=== PATIENT | male | born 2000 | race Caucasian/White ===

== ENCOUNTER 2018-11-26 15:06 | Emergency (ER) | payer SELFPAY ==
[2018-11-26 16:06] LABS: Absolute Lymphocytes (CBC) 1.4 K/uL (0.7-4.9); Absolute Monocytes 0.3 K/uL (0.1-1.3); Basophils % 0.4 % (0-1.3); Eosinophils % 0.3 % (0-4.4); Hematocrit 48.1 % (39.6-49.0); Lymphocytes % 23.8 % (15.3-44.8); MPV 7.3 fL (7.6-11.3); Monocytes % 5.8 % (3.3-12.3); RBC Red Blood Cell Count 5.55 M/uL (4.33-5.43)
[2018-11-26] MEDS ORDERED: NA CHLORIDE 0.9% 1,000 ML ONE (16:12)
[2018-11-26] MEDS ORDERED: MECLIZINE HCL 12.5 MG TAB ONE ×2 (16:24→16:28)
[2018-11-26] MEDS ORDERED: ONDANSETRON 4 MG (ODT) TAB ONE (16:24)
[2018-11-26 16:31] LABS: BUN Blood Urea Nitrogen 12 mg/dL (7-18); Bicarbonate 27 mmol/L (21-32); Glucose Level 155 mg/dL (74-106); Magnesium 2.6 mg/dL (1.8-2.4); Potassium 3.6 mmol/L (3.5-5.1); Sodium Level 140 mmol/L (136-145); T3 Free 3.16 pg/mL (2.18-3.98)
--- NOTE | 2018-11-26 16:31 | EKG ---
Test Date: 2018-11-26 Test Time: 15:41:31 Relay Dispatcher: JAZ MEASUREMENT RESULTS: Intervals: Rate: 68 VT: 146 QRSD: 104 QT: 382 QTc: 406 Mccormick: P: 62 VT: 146 QRS: 63 T: 54 INTERPRETIVE STATEMENTS: Normal sinus rhythm Normal ECG No previous ECG available for comparison Electronically Signed On 11-26-18 16:30:25 CDT by João Rajan
--- NOTE | 2018-11-26 16:55 | EDPHYS ---
Physician Documentation [facility] Name: Faizan Montejo Age: 18 yrs Sex: Male : 2000 Arrival Date: 11/26/2018 Time: 15:11 Bed 27 Private MD: ED Physician Fredi Holman HPI: 11/26 15:40 This 18 yrs old Male presents to ER via Ambulatory with complaints of cp Dizziness, Fatigue. 15:40 The patient presents with dizziness, lightheadedness. Onset: The symptoms/episode cp began/occurred 1 week(s) ago. Context: occurred while the patient was eating at restaurant today. just prior to the episode the patient experienced no apparent symptoms. 15:40 Modifying factors: the symptoms are aggravated by standing up. Associated signs and cp symptoms: Pertinent negatives: blurred vision, chest pain, focal weakness, headache, syncope, vomiting. Severity of symptoms: in the emergency department the symptoms are unchanged. Patient's baseline: Neuro: alert and fully oriented, Motor: no deficits, Ambulation: walks without assistance, Speech: normal. Historical: - Allergies: 15:19 No Known Allergies; sg - Home Meds: 15:19 None [Active]; sg - PMHx: 15:19 None; sg - PSHx: 15:19 None; sg - Immunization history:: Adult Immunizations. - Social history:: Smoking status: Patient/guardian denies using tobacco. - Ebola Screening: : Patient negative for fever greater than or equal to 101.5 degrees Fahrenheit, and additional compatible Ebola Virus Disease symptoms Patient denies exposure to infectious person Patient denies travel to an Ebola-affected area in the 21 days before illness onset No symptoms or risks identified at this time. ROS: 16:45 Constitutional: Positive for fatigue, Negative for body aches, chills, fever, poor PO cp intake. 16:45 Eyes: Negative for injury, pain, redness, and discharge. cp 16:45 ENT: Negative for drainage from ear(s), ear pain, sore throat, difficulty swallowing, difficulty handling secretions. 16:45 Neck: Negative for pain with movement, pain at rest, stiffness, tenderness. 16:45 Cardiovascular: Negative for chest pain, edema, palpitations. 16:45 Respiratory: Negative for cough, shortness of breath, wheezing. 16:45 Abdomen/GI: Negative for abdominal pain, nausea, vomiting, and diarrhea, constipation, black/tarry stool, rectal bleeding. 16:45 : Negative for urinary symptoms. 16:45 Skin: Negative for cellulitis, rash. 16:45 Neuro: Positive for dizziness, Negative for altered mental status, headache, syncope, weakness. 16:45 All other systems are negative. Exam: 15:45 ECG was reviewed by the Attending Physician. cp 16:48 Constitutional: The patient appears in no acute distress, alert, awake, cp non-diaphoretic, non-toxic, well developed, well nourished. 16:48 Head/Face: Normocephalic, atraumatic. cp 16:48 Eyes: Periorbital structures: appear normal, Pupils: equal, round, and reactive to light and accomodation, Extraocular movements: intact throughout, Conjunctiva: normal, no exudate, no injection, Lids and lashes: appear normal, bilaterally. 16:48 ENT: External ear(s): are unremarkable, Ear canal(s): are normal, clear, TM's: dullness, bilaterally, Nose: is normal, Mouth: Lips: moist, Oral mucosa: pink and intact, moist, Posterior pharynx: is normal, airway is patent, no erythema, no exudate. 16:48 Neck: ROM/movement: is normal, is supple, without pain, no range of motions limitations, no nuchal rigidity, Lymph nodes: no appreciated lymphadenopathy. 16:48 Chest/axilla: Inspection: normal, Palpation: is normal, no crepitus, no tenderness. 16:48 Cardiovascular: Rate: normal, Rhythm: regular, Heart sounds: murmur, not appreciated, Edema: is not appreciated, JVD: is not appreciated. 16:48 Respiratory: the patient does not display signs of respiratory distress, Respirations: normal, no use of accessory muscles, no retractions, no splinting, no tachypnea, labored breathing, is not present, Breath sounds: are clear throughout, no decreased breath sounds, no stridor, no wheezing. 16:48 Abdomen/GI: Inspection: abdomen appears normal, Palpation: abdomen is soft and non-tender, in all quadrants. 16:48 Skin: no rash present. 16:48 Neuro: Orientation: to person, place \\T\\ time. Mentation: is normal, Cerebellar function: is grossly normal, Motor: moves all fours, strength is normal, Sensation: is normal. Vital Signs: 15:18 BP 132 / 81; Pulse 93; Resp 16; Temp 97.2; Pulse Ox 100% ; Weight 59.87 kg; Height 5 sg ft. 9 in. (175.26 cm); Pain 0/10; 15:20 BP 124 / 74 Supine (auto/reg); Pulse 77; Resp 18; Pulse Ox 97% on R/A; jp3 15:22 BP 123 / 86 Sitting (auto/reg); Pulse 109; Pulse Ox 98% on R/A; jp3 15:24 BP 122 / 77 Standing (auto/reg); Pulse 122; Pulse Ox 97% on R/A; jp3 16:15 BP 128 / 84; Pulse 77; Resp 18 S; Pulse Ox 99% on R/A; ca1 17:00 BP 124 / 82; Pulse 75; Resp 18 S; Pulse Ox 100% on R/A; ca1 15:18 Body Mass Index 19.49 (59.87 kg, 175.26 cm) sg 15:20 pt reported "eyes feel heavy; slight lightheadiness; 'mush mouth' " jp3 15:22 pt reported "feel the same as laying down; dry mouth" jp3 15:24 pt reported "heavy eyes and lightheadiness worse than sitting and laying; slight upset jp3 stomach when standing" MDM: 15:14 Patient medically screened. cp 16:00 Differential diagnosis: cardiac arrhythmia, generalized weakness, hypovolemia, cp idiopathic dizziness, vertigo. 16:54 Data reviewed: vital signs, nurses notes, lab test result(s), EKG, and as a result, I cp will discharge patient. 16:54 Test interpretation: by ED physician or midlevel provider: ECG. cp 16:55 Counseling: I had a detailed discussion with the patient and/or guardian regarding: the cp historical points, exam findings, and any diagnostic results supporting the discharge/admit diagnosis, lab results, to return to the emergency department if symptoms worsen or persist or if there are any questions or concerns that arise at home. 16:55 Response to treatment: the patient's symptoms have markedly improved after treatment, cp and as a result, I will discharge patient. ED course: VSS. Patient reports symptoms improved after IV fluids. Will discharge to home for continued monitoring. 11/26 15:40 Order name: CBC with Diff; Complete Time: 16:30 cp 11/26 16:30 Interpretation: Normal except: RBC 5.55; MPV 7.3. cp 11/26 15:40 Order name: BMP; Complete Time: 16:45 cp 11/26 16:45 Interpretation: Normal except: GLUC 155. cp 11/26 15:40 Order name: Cannon Screen Profile; Complete Time: 16:30 cp 11/26 15:40 Order name: Magnesium; Complete Time: 16:45 cp 11/26 16:45 Interpretation: MG 2.6; Reviewed. cp 11/26 15:40 Order name: TSH; Complete Time: 16:45 cp 11/26 15:40 Order name: T3 Free; Complete Time: 16:45 cp 11/26 15:14 Order name: Orthostatics; Complete Time: 15:32 cp 11/26 15:33 Order name: EKG; Complete Time: 15:34 cp 11/26 16:00 Order name: Glucose, Ancillary Testing; Complete Time: 16:30 EDMS 11/26 16:30 Interpretation: Abnormal: GLUC,ANCIL 158. cp 11/26 15:34 Order name: EKG - Nurse/Tech; Complete Time: 15:44 mg2 11/26 15:40 Order name: Accucheck Blood Glucose; Complete Time: 16:03 cp EC:45 Rate is 68 beats/min. Rhythm is regular. IN interval is normal. QRS interval is cp prolonged at 104 msec. QT interval is normal. Interpreted by me. Reviewed by me. Administered Medications: 15:50 Drug: NS 0.9% 1000 ml Route: IV; Rate: 1 bolus; Site: right antecubital; ca1 16:50 Follow up: Response: No adverse reaction; IV Status: Completed infusion ca1 16:14 Drug: Zofran 4 mg Route: PO; ca1 17:00 Follow up: Response: No adverse reaction; Nausea is decreased ca1 16:20 Drug: Meclizine 25 mg Route: PO; ca1 17:00 Follow up: Response: No adverse reaction; Nausea is decreased ca1 Disposition: 19 16:55 Discharged to Home. Impression: Dizziness and giddiness, Other fatigue. - Condition is Stable. - Discharge Instructions: Dizziness, Fatigue. - Prescriptions for Meclizine 25 mg Oral Tablet - take 1 tablet by ORAL route every 8 hours As needed; 30 tablet. - Medication Reconciliation Form, Thank You Letter, Antibiotic Education, Prescription Opioid Use, Work release form form. - Follow up: Private Physician; When: 2 - 3 days; Reason: symptoms continue. - Problem is new. - Symptoms have improved. Addendum: 11/29/2018 00:14 Co-signature as Attending Physician, Fredi Holman MD. g s Signatures: Dispatcher [employer] EDSanjiv Sykes RN RN sg Jose Luis Ayoub, BRIANDA PA cp Fredi Holman MD MD gs Bran Elizondo, RN RN mg2 Ludmila Gomez RN RN ca1 Corrections: (The following items were deleted from the chart) 11/26 15:34 15:33 EKG - Nurse/Tech ordered. cp mg2 17:08 16:55 11/26/2018 16:55 Discharged to Home. Impression: Dizziness and giddiness; Other ca1 fatigue. Condition is Stable. Forms are Medication Reconciliation Form, Thank You Letter, Antibiotic Education, Prescription Opioid Use. Follow up: Private Physician; When: 2 - 3 days; Reason: symptoms continue. Problem is new. Symptoms have improved. cp
--- NOTE | 2018-11-26 16:55 | ER ---
Nurse's Notes [facility] Name: Faizan Montejo Age: 18 yrs Sex: Male : 2000 Arrival Date: 11/26/2018 Time: 15:11 Bed 27 Private MD: Diagnosis: Dizziness and giddiness;Other fatigue Presentation: 11/26 15:17 Presenting complaint: Patient states: Shahnaz had dizziness, and my eyes shake back and sg forth really quickly, it comes and goes, i feel like it makes me this way after i eat sugar, reports increased thirst but denies an increase in urination at this time, no n/v/d/fever report. Transition of care: patient was not received from another setting of care. Onset of symptoms was November 26, 2018. Risk Assessment: Do you want to hurt yourself or someone else? Patient reports no desire to harm self or others. Initial Sepsis Screen: Does the patient meet any 2 criteria? No. Patient's initial sepsis screen is negative. Does the patient have a suspected source of infection? No. Patient's initial sepsis screen is negative. Care prior to arrival: None. 15:17 Method Of Arrival: Ambulatory sg 15:17 Acuity: BRET 4 sg Historical: - Allergies: 15:19 No Known Allergies; sg - Home Meds: 15:19 None [Active]; sg - PMHx: 15:19 None; sg - PSHx: 15:19 None; sg - Immunization history:: Adult Immunizations. - Social history:: Smoking status: Patient/guardian denies using tobacco. - Ebola Screening: : Patient negative for fever greater than or equal to 101.5 degrees Fahrenheit, and additional compatible Ebola Virus Disease symptoms Patient denies exposure to infectious person Patient denies travel to an Ebola-affected area in the 21 days before illness onset No symptoms or risks identified at this time. Screenin:20 Abuse screen: Denies threats or abuse. Denies injuries from another. Nutritional ca1 screening: No deficits noted. Tuberculosis screening: No symptoms or risk factors identified. Fall Risk None identified. Assessment: 15:20 General: Appears in no apparent distress. uncomfortable, Behavior is calm, cooperative, ca1 appropriate for age. General: Reports reports feeling lightheaded since a week. Pain: Denies pain. Neuro: Level of Consciousness is awake, alert, obeys commands, Oriented to person, place, time, situation, Reports dizziness, since a week and half ago. Cardiovascular: Heart tones S1 S2 present Capillary refill < 3 seconds Patient's skin is warm and dry. Respiratory: Airway is patent Respiratory effort is even, unlabored, Respiratory pattern is regular, symmetrical, Breath sounds are clear bilaterally. GI: Abdomen is flat, non-distended, Bowel sounds present X 4 quads. Abd is soft and non tender X 4 quads. : Reports increase urination than normal for the past a week and half. EENT: No deficits noted. No signs and/or symptoms were reported regarding the EENT system. Derm: Skin is intact, is healthy with good turgor, Skin is pink, warm \\T\\ dry. Musculoskeletal: Circulation, motion, and sensation intact. Capillary refill < 3 seconds. 16:15 Reassessment: Patient appears in no apparent distress at this time. Patient and/or ca1 family updated on plan of care and expected duration. Pain level reassessed. Patient is alert, oriented x 3, equal unlabored respirations, skin warm/dry/pink. Patient states feeling better. Vital Signs: 15:18 BP 132 / 81; Pulse 93; Resp 16; Temp 97.2; Pulse Ox 100% ; Weight 59.87 kg; Height 5 sg ft. 9 in. (175.26 cm); Pain 0/10; 15:20 BP 124 / 74 Supine (auto/reg); Pulse 77; Resp 18; Pulse Ox 97% on R/A; jp3 15:22 BP 123 / 86 Sitting (auto/reg); Pulse 109; Pulse Ox 98% on R/A; jp3 15:24 BP 122 / 77 Standing (auto/reg); Pulse 122; Pulse Ox 97% on R/A; jp3 16:15 BP 128 / 84; Pulse 77; Resp 18 S; Pulse Ox 99% on R/A; ca1 17:00 BP 124 / 82; Pulse 75; Resp 18 S; Pulse Ox 100% on R/A; ca1 15:18 Body Mass Index 19.49 (59.87 kg, 175.26 cm) sg 15:20 pt reported "eyes feel heavy; slight lightheadiness; 'mush mouth' " jp3 15:22 pt reported "feel the same as laying down; dry mouth" jp3 15:24 pt reported "heavy eyes and lightheadiness worse than sitting and laying; slight upset jp3 stomach when standing" ED Course: 15:11 Patient arrived in ED. mr 15:12 Jose Luis Ayoub PA is PHCP. juan 15:12 Fredi Holman MD is Attending Physician. cp 15:15 Pulse ox on. NIBP on. jp3 15:17 Ludmila Gomez, KATINA is Primary Nurse. ca1 15:18 Triage completed. sg 15:20 Arm band placed on. ca1 15:31 Bed in low position. Call light in reach. Side rails up X 1. jp3 15:47 EKG done, by fire technician. reviewed by Jose Luis LAMAR. sm3 15:50 Inserted saline lock: 20 gauge in right antecubital area, using aseptic technique. ca1 Blood collected. 17:04 No provider procedures requiring assistance completed. IV discontinued, intact, ca1 bleeding controlled, No redness/swelling at site. Pressure dressing applied. Administered Medications: 15:50 Drug: NS 0.9% 1000 ml Route: IV; Rate: 1 bolus; Site: right antecubital; ca1 16:50 Follow up: Response: No adverse reaction; IV Status: Completed infusion ca1 16:14 Drug: Zofran 4 mg Route: PO; ca1 17:00 Follow up: Response: No adverse reaction; Nausea is decreased ca1 16:20 Drug: Meclizine 25 mg Route: PO; ca1 17:00 Follow up: Response: No adverse reaction; Nausea is decreased ca1 Outcome: 16:55 Discharge ordered by MD. cp 17:04 Discharged to home ambulatory, with significant other. ca1 17:04 Condition: stable 17:04 Discharge instructions given to patient, Instructed on discharge instructions, follow up and referral plans. medication usage, Demonstrated understanding of instructions, follow-up care, medications, Prescriptions given X 1. 17:08 Patient left the ED. ca1 Signatures: Sanjiv Sanches, RN RN lashonda LimSeda mr Jose Luis Ayoub PA PA cp Montes, Shakira 3 Joel Cota jp3 Ludmila Gomez RN RN ca1 Corrections: (The following items were deleted from the chart) 17:06 16:15 Reassessment: Patient appears in no apparent distress at this time. Patient ca1 and/or family updated on plan of care and expected duration. Pain level reassessed. Patient is alert, oriented x 3, equal unlabored respirations, skin warm/dry/pink. ca1
== END 2018-11-26 17:08 | disposition home or self-care (01) ==
LOC: ER 15:06
DX: R53.83 Other fatigue (principal)
CPT/HCPCS: 36415; 80048; 82962; 83735; 84443; 84481; 85025; 86308; 93005; 96360; 99284; J7030

== ENCOUNTER 2019-01-07 08:14 | Emergency (ER) | payer SELFPAY ==
[2019-01-07 09:25] LABS: Absolute Lymphocytes (CBC) 1.2 K/uL (0.7-4.9); Absolute Monocytes 0.3 K/uL (0.1-1.3); Absolute Neutrophil 2.3 K/uL (1.8-8.0); Basophils % 2.2 % (0-1.3); Eosinophils % 5.9 % (0-4.4); Hematocrit 44.7 % (39.6-49.0); Lymphocytes % 29.8 % (15.3-44.8); MPV 7.8 fL (7.6-11.3); Monocytes % 7.6 % (3.3-12.3); RBC Red Blood Cell Count 5.06 M/uL (4.33-5.43)
[2019-01-07 09:28] LABS: Protime INR 1.11
[2019-01-07 09:43] LABS: ALT/SGPT 18 U/L (12-78); AST/SGOT 15 U/L (15-37); Alkaline Phosphatase 67 U/L (45-117); BUN Blood Urea Nitrogen 7 mg/dL (7-18); Bicarbonate 28 mmol/L (21-32); Bilirubin Direct 0.2 mg/dL (0-0.2); Bilirubin Total 0.7 mg/dL (0.2-1.0); Glucose Level 95 mg/dL (74-106); Potassium 3.6 mmol/L (3.5-5.1); Protein, Total 6.8 g/dL (6.4-8.2); Sodium Level 142 mmol/L (136-145)
[2019-01-07 10:56] LABS: Urine Blood NEGATIVE (NEG); Urine Glucose NEGATIVE (NEG); Urine Protein TRACE (NEG)
[2019-01-07 11:23] LABS: Barbiturates NEGATIVE (NEGATIVE); Benzodiazepines NEGATIVE (NEGATIVE); Cocaine NEGATIVE (NEGATIVE); METHAMPHETAM NEGATIVE (NEGATIVE); Methadone NEGATIVE (NEGATIVE); Opiates NEGATIVE (NEGATIVE); Phencyclidine NEGATIVE (NEGATIVE); THC Cannibis NEGATIVE (NEGATIVE)
--- NOTE | 2019-01-07 11:46 | ER ---
Nurse's Notes [facility] Name: Faizan Montejo Age: 18 yrs Sex: Male : 2000 Arrival Date: 01/07/2019 Time: 08:17 Bed 5 Private MD: Diagnosis: Syncope and collapse Presentation: 01/07 08:28 Presenting complaint: Patient states: Was at work, talking with a co worker when sg everything went black and the next thing I know Im being helped out to a persons car by my assistant manager of operations to get me here to the ER. pt reports feeling tired, denies weakness, denies N/V//D/Fever, reports having issues with feeling like was going to pass out in the past but has not actually passed out until today. Transition of care: patient was not received from another setting of care. Onset of symptoms was January 07, 2019. Risk Assessment: Do you want to hurt yourself or someone else? Patient reports no desire to harm self or others. Initial Sepsis Screen: Does the patient meet any 2 criteria? No. Patient's initial sepsis screen is negative. Does the patient have a suspected source of infection? No. Patient's initial sepsis screen is negative. Care prior to arrival: None. 08:28 Method Of Arrival: Ambulatory sg 08:28 Acuity: BRET 3 sg Historical: - Allergies: 08:27 No Known Allergies; sg - Home Meds: 08:27 None [Active]; sg - PMHx: 08:27 None; sg - PSHx: 08:27 None; sg - Immunization history:: Adult Immunizations up to date. - Social history:: Smoking status: Patient/guardian denies using tobacco. - Ebola Screening: : Patient negative for fever greater than or equal to 101.5 degrees Fahrenheit, and additional compatible Ebola Virus Disease symptoms Patient denies exposure to infectious person Patient denies travel to an Ebola-affected area in the 21 days before illness onset No symptoms or risks identified at this time. Screenin:30 Abuse screen: Denies threats or abuse. Denies injuries from another. Nutritional sg screening: No deficits noted. Tuberculosis screening: No symptoms or risk factors identified. Never had TB. Fall Risk None identified. Assessment: 08:33 General: Appears in no apparent distress. well groomed, well developed, well nourished, sg Behavior is calm, cooperative, appropriate for age. Pain: Denies pain. Neuro: Level of Consciousness is awake, alert, obeys commands, Oriented to person, place, time, situation, Hand Stonecutter are equal bilaterally Moves all extremities. Full function Gait is steady, Speech is normal, Facial symmetry appears normal, Pupils are PERRLA, Reports dizziness, a syncopal episode. Cardiovascular: Capillary refill is brisk in bilateral fingers Patient's skin is warm and dry. Chest pain is denied. Respiratory: Airway is patent Respiratory effort is even, unlabored, Respiratory pattern is regular, symmetrical. GI: Reports tolerance of fluids, tolerance of food. : No signs and/or symptoms were reported regarding the genitourinary system. EENT: No signs and/or symptoms were reported regarding the EENT system. Derm: Skin is pink, warm \T\ dry. Musculoskeletal: No signs and/or symptoms reported regarding the musculoskeletal system. 09:30 Reassessment: Patient appears in no apparent distress at this time. No changes from tw2 previously documented assessment. Patient and/or family updated on plan of care and expected duration. Pain level reassessed. Patient is alert, oriented x 3, equal unlabored respirations, skin warm/dry/pink. 10:22 Reassessment: Patient appears in no apparent distress at this time. No changes from tw2 previously documented assessment. Patient and/or family updated on plan of care and expected duration. Pain level reassessed. Patient is alert, oriented x 3, equal unlabored respirations, skin warm/dry/pink. 11:59 Reassessment: Patient appears in no apparent distress at this time. No changes from tw2 previously documented assessment. Patient and/or family updated on plan of care and expected duration. Pain level reassessed. Patient is alert, oriented x 3, equal unlabored respirations, skin warm/dry/pink. Vital Signs: 08:27 BP 127 / 79 LA Sitting (auto/reg); Pulse 62; Resp 17; Temp 97.6; Pulse Ox 99% on R/A; sg 08:52 Weight 56.7 kg (R); tw2 09:10 BP 120 / 74; Pulse 48; Resp 17; Pulse Ox 100% on R/A; tw2 10:21 BP 104 / 61; Pulse 54; Resp 17; Pulse Ox 98% on R/A; tw2 11:58 BP 109 / 58; Pulse 54; Resp 17; Pulse Ox 99% on R/A; tw2 09:10 provider notified. tw2 ED Course: 08:17 Patient arrived in ED. mr 08:21 Antonio Dubon MD is Attending Physician. kdr 08:24 Bed in low position. Call light in reach. tw2 08:26 Sanjiv Sanches, RN is Primary Nurse. sg 08:27 Arm band placed on. sg 08:29 Triage completed. sg 08:43 EKG done, by senior telecommunications technician. reviewed by Antonio Dubon MD. at1 08:52 Inserted saline lock: 20 gauge in right forearm, using aseptic technique. Blood tw2 collected. 11:59 No provider procedures requiring assistance completed. IV discontinued, intact, tw2 bleeding controlled, No redness/swelling at site. Pressure dressing applied. Administered Medications: No medications were administered Point of Care Testing: Blood Glucose: 08:53 Blood Glucose: 95 mg/dL; sg Ranges: Outcome: 11:44 Discharge ordered by . kdr 11:59 Discharged to home ambulatory. tw2 11:59 Condition: stable 11:59 Discharge instructions given to patient, Instructed on discharge instructions, follow up and referral plans. Demonstrated understanding of instructions, follow-up care. 11:59 Patient left the ED. tw2 Signatures: Sanjiv Sanches, RN Antonio Zuniga MD MD kdr Rivera, Mary mr Diaz Adrienne, product safety engineer EKG Tat1 Vivienne Umana RN RN tw2
--- NOTE | 2019-01-07 11:48 | EDPHYS ---
Physician Documentation [facility] Name: Faizan Montejo Age: 18 yrs Sex: Male : 2000 Arrival Date: 01/07/2019 Time: 08:17 Bed 5 Private MD: ED Physician Antonio Dubon HPI: 01/07 08:40 This 18 yrs old Male presents to ER via Ambulatory with complaints of Passed kdr Out Prior To Arrival. 08:40 The patient has experienced syncope, collapsed, lost consciousness. Onset: The kdr symptoms/episode began/occurred suddenly, just prior to arrival. Duration: This was a single episode, that lasted an unknown period of time. Context: the episode(s) was witnessed, by co-worker(s), occurred at work, occurred while the patient was He had just asked a co-worker to help him get his ear studs back in. Associated injury: The patient did not suffer any apparent associated injury. Associated signs and symptoms: The patient has no apparent associated signs or symptoms, Pertinent positives: weakness, Pertinent negatives: abdominal pain, agitation, ataxia, blurred vision, chest pain, combativeness, confusion, diaphoresis, diarrhea, dizziness, headache, lightheadedness, nausea, numbness, palpitations, seizure, shortness of breath, tingling, vertigo, vomiting. Current symptoms: Currently, the patient is not experiencing any symptoms. The patient was seen here about a month ago for dizziness and was discharged without any reason found. There is no significant or suggestive family history either. The patient denies substance use and works in a [employer] shop in the [place]. This is not a new job. The patient has not recently seen a physician. Historical: - Allergies: 08:27 No Known Allergies; sg - Home Meds: 08:27 None [Active]; sg - PMHx: 08:27 None; sg - PSHx: 08:27 None; sg - Immunization history:: Adult Immunizations up to date. - Social history:: Smoking status: Patient/guardian denies using tobacco. - Ebola Screening: : Patient negative for fever greater than or equal to 101.5 degrees Fahrenheit, and additional compatible Ebola Virus Disease symptoms Patient denies exposure to infectious person Patient denies travel to an Ebola-affected area in the 21 days before illness onset No symptoms or risks identified at this time. ROS: 08:40 Constitutional: Negative for fever, chills, and weight loss, Eyes: Negative for injury, kdr pain, redness, and discharge, ENT: Negative for injury, pain, and discharge, Neck: Negative for injury, pain, and swelling, Cardiovascular: Negative for chest pain, palpitations, and edema, Respiratory: Negative for shortness of breath, cough, wheezing, and pleuritic chest pain, Abdomen/GI: Negative for abdominal pain, nausea, vomiting, diarrhea, and constipation, Back: Negative for injury and pain, : Negative for injury, bleeding, discharge, and swelling, MS/Extremity: Negative for injury and deformity, Skin: Negative for injury, rash, and discoloration, Psych: Negative for depression, anxiety, suicide ideation, homicidal ideation, and hallucinations, Allergy/Immunology: Negative for hives, rash, and allergies, Endocrine: Negative for neck swelling, polydipsia, polyuria, polyphagia, and marked weight changes, Hematologic/Lymphatic: Negative for swollen nodes, abnormal bleeding, and unusual bruising. 08:40 Neuro: Positive for dizziness, syncope, Negative for gait disturbance, headache, hearing loss, numbness, seizure activity, speech changes, tingling, tinnitus, tremor, visual changes. Exam: 08:40 Constitutional: This is a well developed, well nourished patient who is awake, alert, kdr and in no acute distress. Head/Face: Normocephalic, atraumatic. Eyes: Pupils equal round and reactive to light, extra-ocular motions intact. Lids and lashes normal. Conjunctiva and sclera are non-icteric and not injected. Cornea within normal limits. Periorbital areas with no swelling, redness, or edema. Neck: Trachea midline, no thyromegaly or masses palpated, and no cervical lymphadenopathy. Supple, full range of motion without nuchal rigidity, or vertebral point tenderness. No Meningismus. Chest/axilla: Normal chest wall appearance and motion. Nontender with no deformity. No lesions are appreciated. Cardiovascular: Regular rate and rhythm with a normal S1 and S2. No gallops, murmurs, or rubs. Normal PMI, no JVD. No pulse deficits. Respiratory: Lungs have equal breath sounds bilaterally, clear to auscultation and percussion. No rales, rhonchi or wheezes noted. No increased work of breathing, no retractions or nasal flaring. Abdomen/GI: Soft, non-tender, with normal bowel sounds. No distension or tympany. No guarding or rebound. No evidence of tenderness throughout. Back: No spinal tenderness. No costovertebral tenderness. Full range of motion. Skin: Warm, dry with normal turgor. Normal color with no rashes, no lesions, and no evidence of cellulitis. MS/ Extremity: Pulses equal, no cyanosis. Neurovascular intact. Full, normal range of motion. Neuro: Awake and alert, GCS 15, oriented to person, place, time, and situation. Cranial nerves II-XII grossly intact. Motor strength 5/5 in all extremities. Sensory grossly intact. Cerebellar exam normal. Normal gait. Psych: Awake, alert, with orientation to person, place and time. Behavior, mood, and affect are within normal limits. 08:40 ECG was reviewed by the Attending Physician. kdr Vital Signs: 08:27 BP 127 / 79 LA Sitting (auto/reg); Pulse 62; Resp 17; Temp 97.6; Pulse Ox 99% on R/A; sg 08:52 Weight 56.7 kg (R); tw2 09:10 BP 120 / 74; Pulse 48; Resp 17; Pulse Ox 100% on R/A; tw2 10:21 BP 104 / 61; Pulse 54; Resp 17; Pulse Ox 98% on R/A; tw2 11:58 BP 109 / 58; Pulse 54; Resp 17; Pulse Ox 99% on R/A; tw2 09:10 provider notified. tw2 MDM: 08:40 Data reviewed: vital signs, nurses notes, lab test result(s), EKG, radiologic studies. kdr Counseling: I had a detailed discussion with the patient and/or guardian regarding: the historical points, exam findings, and any diagnostic results supporting the discharge/admit diagnosis, lab results, radiology results, the need for outpatient follow up. 11:44 Patient medically screened. kdr 01/07 08:40 Order name: Acetaminophen; Complete Time: :58 kdr 01/07 08:40 Order name: Basic Metabolic Panel; Complete Time: :58 kdr 01/07 08:40 Order name: CBC with Diff; Complete Time: 58 kdr 01/07 08:40 Order name: ETOH Level; Complete Time: :58 kdr 01/07 08:40 Order name: Hepatic Function; Complete Time: :58 kdr 01/07 08:40 Order name: PT-INR; Complete Time: :58 kdr 01/07 08:29 Order name: EKG; Complete Time: 08:31 sg 01/07 08:40 Order name: Ptt, Activated; Complete Time: :58 kdr 01/07 08:40 Order name: Salicylate; Complete Time: :58 kdr 01/07 08:40 Order name: Urine Drug Screen; Complete Time: 11:44 kdr 01/07 08:40 Order name: EKG - Nurse/Tech; Complete Time: 08:43 kdr 01/07 08:40 Order name: IV Saline Lock; Complete Time: 08:52 kdr 01/07 10:04 Order name: Glucose, Ancillary Testing; Complete Time: 10:15 EDMS 01/07 10:42 Order name: Urine Dipstick--Ancillary (enter results); Complete Time: 11:17 ms 01/07 08:40 Order name: Labs collected and sent; Complete Time: 08: kdr 01/07 08:40 Order name: Urine Dipstick-Ancillary (obtain specimen); Complete Time: 10:53 kdr EC:40 Rate is 60 beats/min. Rhythm is regular, Normal Sinus Rhythm with No ectopy. QRS [place] kdr is Normal. SD interval is normal. QRS interval is normal. QT interval is normal. No Q waves. T waves are Normal. No ST changes noted. Clinical impression: Normal ECG. Administered Medications: No medications were administered Point of Care Testing: Blood Glucose: 08:53 Blood Glucose: 95 mg/dL; sg Ranges: Critical Glucose Levels:Adult <50 mg/dl or >400 mg/dl <40 mg/dl or >180 mg/dl Disposition: 01/07/19 11:44 Discharged to Home. Impression: Syncope and collapse. - Condition is Stable. - Discharge Instructions: Syncope. - Medication Reconciliation Form, Thank You Letter, Work release form form. - Follow up: Private Physician; When: 2 - 3 days; Reason: If symptoms return, Further diagnostic work-up, Recheck today's complaints, Continuance of care, Re-evaluation by your physician. - Problem is new. - Symptoms are resolved. Signatures: Dispatcher [employer] Sanjiv Barrera RN RN sg Antonio Dubon MD MD kdr Vivienne Umana RN RN tw2 Corrections: (The following items were deleted from the chart) 11:59 11:44 01/07/2019 11:44 Discharged to Home. Impression: Syncope and collapse. Condition tw2 is Stable. Forms are Medication Reconciliation Form, Thank You Letter, Antibiotic Education, Prescription Opioid Use. Follow up: Private Physician; When: 2 - 3 days; Reason: If symptoms return, Further diagnostic work-up, Recheck today's complaints, Continuance of care, Re-evaluation by your physician. Problem is new. Symptoms are resolved. kdr
--- NOTE | 2019-01-07 14:30 | EKG ---
Test Date: 2019-01-07 Test Time: 08:42:15 [employer] Boss: E[employer]ER MEASUREMENT RESULTS: Intervals: Rate: 60 KS: 150 QRSD: 106 QT: 398 QTc: 398 [place]: P: 76 KS: 150 QRS: 69 T: 67 INTERPRETIVE STATEMENTS: Normal sinus rhythm Normal ECG Compared to ECG 11/26/2018 15:41:31 No significant changes Electronically Signed On 01-07-19 14:28:54 CDT by Wilson Ratliff
== END 2019-01-07 11:59 | disposition home or self-care (01) ==
LOC: ER 08:14
DX: R55 Syncope and collapse (principal)
CPT/HCPCS: 36415; 80048; 80076; 80307; 80320; 80329; 81003; 82962; 85025; 85610; 85730; 93005; 99284

== ENCOUNTER 2019-05-03 13:07 | Emergency (ER) | payer SELFPAY ==
[2019-05-03] MEDS ORDERED: dexAMETHasone 10 MG/ML VIAL ONE (13:44)
[2019-05-03] MEDS ORDERED: CLINDAMYCIN IV 150 MG/ML (4 mL) VIAL ONE (13:44)
[2019-05-03] MEDS ORDERED: CLINDAMYCIN HCL 150 MG CAP ONE (13:44)
[2019-05-03] MEDS ORDERED: PEN G BENZ LA 1.2MU/2ML SYRINGE IM ONE (13:44)
--- NOTE | 2019-05-03 14:06 | EDPHYS ---
Physician Documentation [facility] Name: Faizan Montejo Age: 18 yrs Sex: Male : 2000 Arrival Date: 05/03/2019 Time: 13:10 Bed 12 Private MD: ED Physician Jose Luis Clark HPI: 05/03 13:39 This 18 yrs old Male presents to ER via Ambulatory with complaints of Sore rupali Throat. 13:39 The patient presents with sore throat. The patient describes throat pain as burning, rupali constant. Onset: The symptoms/episode began/occurred 1 week(s) ago. Severity of symptoms: At their worst the symptoms were mild. Modifying factors: The symptoms are alleviated by. Associated signs and symptoms: The patient has no apparent associated signs or symptoms. The patient has not experienced similar symptoms in the past. Historical: - Allergies: 13:20 No Known Allergies; hb - Home Meds: 13:20 None [Active]; hb - PMHx: 13:20 None; hb - PSHx: 13:20 None; hb - Immunization history:: Adult Immunizations up to date. - Social history:: Smoking status: Patient/guardian denies using tobacco. - Ebola Screening: : No symptoms or risks identified at this time. - Family history:: not pertinent. ROS: 13:39 Constitutional: Negative for fever, chills, and weight loss, Eyes: Negative for injury, rupali pain, redness, and discharge, Neck: Negative for injury, pain, and swelling, Cardiovascular: Negative for chest pain, palpitations, and edema, Respiratory: Negative for shortness of breath, cough, wheezing, and pleuritic chest pain, Abdomen/GI: Negative for abdominal pain, nausea, vomiting, diarrhea, and constipation, Back: Negative for injury and pain, : Negative for injury, bleeding, discharge, and swelling, MS/Extremity: Negative for injury and deformity, Skin: Negative for injury, rash, and discoloration, Neuro: Negative for headache, weakness, numbness, tingling, and seizure, Psych: Negative for depression, anxiety, suicide ideation, homicidal ideation, and hallucinations, Allergy/Immunology: Negative for hives, rash, and allergies, Endocrine: Negative for neck swelling, polydipsia, polyuria, polyphagia, and marked weight changes, Hematologic/Lymphatic: Negative for swollen nodes, abnormal bleeding, and unusual bruising. 13:39 ENT: Positive for sore throat. Exam: 13:39 Constitutional: This is a well developed, well nourished patient who is awake, alert, rupali and in no acute distress. Head/Face: Normocephalic, atraumatic. Eyes: Pupils equal round and reactive to light, extra-ocular motions intact. Lids and lashes normal. Conjunctiva and sclera are non-icteric and not injected. Cornea within normal limits. Periorbital areas with no swelling, redness, or edema. Neck: Trachea midline, no thyromegaly or masses palpated, and no cervical lymphadenopathy. Supple, full range of motion without nuchal rigidity, or vertebral point tenderness. No Meningismus. Chest/axilla: Normal chest wall appearance and motion. Nontender with no deformity. No lesions are appreciated. Cardiovascular: Regular rate and rhythm with a normal S1 and S2. No gallops, murmurs, or rubs. Normal PMI, no JVD. No pulse deficits. Respiratory: Lungs have equal breath sounds bilaterally, clear to auscultation and percussion. No rales, rhonchi or wheezes noted. No increased work of breathing, no retractions or nasal flaring. Abdomen/GI: Soft, non-tender, with normal bowel sounds. No distension or tympany. No guarding or rebound. No evidence of tenderness throughout. Back: No spinal tenderness. No costovertebral tenderness. Full range of motion. Male : Normal genitalia with no discharge or lesions. Skin: Warm, dry with normal turgor. Normal color with no rashes, no lesions, and no evidence of cellulitis. MS/ Extremity: Pulses equal, no cyanosis. Neurovascular intact. Full, normal range of motion. Neuro: Awake and alert, GCS 15, oriented to person, place, time, and situation. Cranial nerves II-XII grossly intact. Motor strength 5/5 in all extremities. Sensory grossly intact. Cerebellar exam normal. Normal gait. Psych: Awake, alert, with orientation to person, place and time. Behavior, mood, and affect are within normal limits. 13:39 ENT: Posterior pharynx: Tonsils: enlarged on the right, enlarged on the left, bilaterally enlarged, with erythema, with exudate, left slightly greater than right. Vital Signs: 13:20 BP 121 / 77; Pulse 65; Resp 16; Temp 97.7; Pulse Ox 100% on R/A; Weight 70.31 kg; hb Height 6 ft. 1 in. (185.42 cm); Pain 10/10; 13:20 Body Mass Index 20.45 (70.31 kg, 185.42 cm) hb MDM: 13:21 Patient medically screened. [facility] 13:43 Data reviewed: vital signs, nurses notes. [facility] 05/03 13:39 Order name: PO challenge; Complete Time: 14:07 [facility] Administered Medications: 13:47 Drug: Clindamycin 300 mg Route: PO; hb 13:50 Drug: Bicillin L-A 1.2 million units Route: IM; Site: right ventrogluteal; hb 13:50 Drug: Decadron 10 mg Route: IM; Site: left ventrogluteal; hb 13:50 Drug: Clindamycin 300 mg Route: IM; Site: left deltoid; hb 13:50 Drug: Clindamycin 300 mg Route: IM; Site: right deltoid; hb Disposition: 05/03/19 13:44 Discharged to Home. Impression: Acute tonsillitis. - Condition is Stable. - Discharge Instructions: Peritonsillar Abscess, Tonsillitis, Tonsillitis, [id number], Peritonsillar Abscess, [id number], Peritonsillar Cellulitis, Peritonitis. - Prescriptions for Clindamycin HCl 300 mg Oral Capsule - take 1 capsule by ORAL route every 6 hours for 10 days; 28 capsule. - Medication Reconciliation Form, Thank You Letter, Antibiotic Education, Prescription Opioid Use form. - Work release form (05/03/19 14:17). hb - Follow up: Private Physician; When: 2 - 3 days; Reason: Recheck today's complaints, Continuance of care, Re-evaluation by your physician. Follow up: Juani Mejia MD; When: 2 - 3 days; Reason: Recheck today's complaints, Re-evaluation by your physician. - Problem is new. - Symptoms have improved. Signatures: Jose Luis Clark MD MD cha Baxter, Heather, RN RN Corrections: (The following items were deleted from the chart) 14:14 13:44 05/03/2019 13:44 Discharged to Home. Impression: Acute tonsillitis. Condition is hb Stable. Forms are Medication Reconciliation Form, Thank You Letter, Antibiotic Education, Prescription Opioid Use. Follow up: Private Physician; When: 2 - 3 days; Reason: Recheck today's complaints, Continuance of care, Re-evaluation by your physician. Follow up: Juani Mejia; When: 2 - 3 days; Reason: Recheck today's complaints, Re-evaluation by your physician. Problem is new. Symptoms have improved. rupali
--- NOTE | 2019-05-03 14:06 | ER ---
Nurse's Notes [facility] Name: Faizan Montejo Age: 18 yrs Sex: Male : 2000 Arrival Date: 05/03/2019 Time: 13:10 Bed 12 Private MD: Diagnosis: Acute tonsillitis Presentation: 05/03 13:19 Presenting complaint: Sore throat x 2 days. Transition of care: patient was not hb received from another setting of care. Onset of symptoms was May 02, 2019. Risk Assessment: Do you want to hurt yourself or someone else? Patient reports no desire to harm self or others. Initial Sepsis Screen: Does the patient meet any 2 criteria? No. Patient's initial sepsis screen is negative. Does the patient have a suspected source of infection? No. Patient's initial sepsis screen is negative. Care prior to arrival: None. 13:19 Method Of Arrival: Ambulatory hb 13:19 Acuity: BRET 4 hb Historical: - Allergies: 13:20 No Known Allergies; hb - Home Meds: 13:20 None [Active]; hb - PMHx: 13:20 None; hb - PSHx: 13:20 None; hb - Immunization history:: Adult Immunizations up to date. - Social history:: Smoking status: Patient/guardian denies using tobacco. - Ebola Screening: : No symptoms or risks identified at this time. - Family history:: not pertinent. Screenin:50 Abuse screen: Denies threats or abuse. Denies injuries from another. Nutritional hb screening: No deficits noted. Tuberculosis screening: No symptoms or risk factors identified. Fall Risk None identified. Assessment: 13:40 General: Appears in no apparent distress. uncomfortable, Behavior is calm, cooperative. hb Pain: Pain currently is 10 out of 10 on a pain scale. Neuro: Level of Consciousness is awake, alert, obeys commands, Oriented to person, place, time, situation. Cardiovascular: Capillary refill < 3 seconds Patient's skin is warm and dry. Respiratory: Airway is patent Respiratory effort is even, unlabored, Respiratory pattern is regular, symmetrical, Breath sounds are clear bilaterally. GI: No signs and/or symptoms were reported involving the gastrointestinal system. : No signs and/or symptoms were reported regarding the genitourinary system. EENT: Throat is reddened has enlarged tonsils bilaterally. Derm: Skin is pink, warm \T\ dry. Musculoskeletal: No signs and/or symptoms reported regarding the musculoskeletal system. Vital Signs: 13:20 BP 121 / 77; Pulse 65; Resp 16; Temp 97.7; Pulse Ox 100% on R/A; Weight 70.31 kg; hb Height 6 ft. 1 in. (185.42 cm); Pain 10/10; 13:20 Body Mass Index 20.45 (70.31 kg, 185.42 cm) hb ED Course: 13:10 Patient arrived in ED. mr 13:14 Jose Luis Clark MD is Attending Physician. rupali 13:20 Triage completed. hb 13:20 Arm band placed on. hb 13:39 Amelia Self, RN is Primary Nurse. hb 13:44 Juani Mejia MD is Referral Physician. rupali 13:50 Patient has correct armband on for positive identification. Call light in reach. hb 14:12 No provider procedures requiring assistance completed. Patient did not have IV access hb during this emergency room visit. Administered Medications: 13:47 Drug: Clindamycin 300 mg Route: PO; hb 13:50 Drug: Bicillin L-A 1.2 million units Route: IM; Site: right ventrogluteal; hb 13:50 Drug: Decadron 10 mg Route: IM; Site: left ventrogluteal; hb 13:50 Drug: Clindamycin 300 mg Route: IM; Site: left deltoid; hb 13:50 Drug: Clindamycin 300 mg Route: IM; Site: right deltoid; hb Outcome: 13:44 Discharge ordered by . rupali 14:12 Discharged to home ambulatory. hb 14:12 Condition: stable 14:12 Discharge instructions given to patient, Instructed on discharge instructions, follow up and referral plans. medication usage, Demonstrated understanding of instructions, follow-up care, medications, Prescriptions given X 1. 14:14 Patient left the ED. hb Signatures: Jose Luis Clark MD MD cha Rivera, Mary mr Amelia Self, RN RN hb
[2019-05-03 14:47] VITALS: BP 121/77; TEMP 97.7; O2SAT 100
== END 2019-05-03 14:14 | disposition home or self-care (01) ==
LOC: ER 13:07
DX: J03.90 Acute tonsillitis, unspecified (principal)
CPT/HCPCS: 96372; 99283; J0561; J1100; S0077